=== PATIENT | male | born 1990 | race American Indian/Alaskan Native ===

== ENCOUNTER 2017-03-31 22:17 | Emergency (ER) | payer SELFPAY ==
[2017-04-01 00:22] LABS: Basophils % (Auto) 0.4 % (0.0-1.8); Eosinophils % (Auto) 4.8 % (0.0-4.3); Hemoglobin 13.1 gm/dl (11.8-15.2); Mean Corpuscular HGB Conc 34 % (32-34); Mean Corpuscular Hemoglobin 33 pg (28-32); Mean Corpuscular Volume 97 fl (84-94); Platelet Count 187 K/mm3 (140-440); Red Blood Count 4.04 M/mm3 (3.65-5.03); Red Cell Distribution Width 11.3 % (13.2-15.2); White Blood Count 8.5 K/mm3 (4.5-11.0)
[2017-04-01 00:50] LABS: Alanine Aminotransferase 15 units/L (7-56); Albumin 3.9 g/dL (3.9-5); Albumin/Globulin Ratio 1.1 %; Alkaline Phosphatase 115 units/L (35-129); Anion Gap 19 mmol/L; BUN/Creatinine Ratio 16.25; Blood Urea Nitrogen 13 mg/dL (9-20); Carbon Dioxide 22 mmol/L (22-30); Glucose 104 mg/dL (75-100); Lipase 28 units/L (13-60); Potassium 4.1 mmol/L (3.6-5.0); Sodium 138 mmol/L (137-145); Total Protein 7.5 g/dL (6.3-8.2)
[2017-04-01 01:26] LABS: Bacteria,Urine 1+ /HPF (Negative); Bilirubin,Urine NEG (Negative); Blood,Urine NEG (Negative); Ketones,Urine NEG (Negative); Leukocyte Esterase,Urine NEG (Negative); Mucus,Urine 1+ /HPF; Nitrite,Urine NEG (Negative); Protein,Urine <15 mg/dL mg/dL (Negative); WBC,Urine < 1.0 /HPF (0.0-6.0)
[2017-04-01 01:55] VITALS: BP 148/69
--- NOTE | 2017-04-01 02:23 | Emergency Department Report ---
HPI - General Chief Complaint: Abdominal Pain Time Seen by Provider: 04/01/17 01:50 - HPI HPI: This is a 26-year-old Afro-[place] male who presents to the emergency department, dropped off to be seen, with complaint of lower abdominal pain that has been going on intermittently for the past 3-4 days. Associated with some diarrhea. He denies any vomiting, dysuria, penile discharge, fever, back pain. He has not taken anything for his symptoms prior to presentation. He denies any past medical history. He does not have a primary care physician. No recent travel or sick contacts at home. ED Past Medical Hx - Past Medical History Previous Medical History?: No - Surgical History Past Surgical History?: Yes Additional Surgical History: left leg - Social History Smoking Status: Never Smoker Substance Use Type: Alcohol ED Review of Systems ROS: Stated complaint: LOWER ABD PAIN Other details as noted in HPI Comment: All other systems reviewed and negative Constitutional: denies: chills, fever Eyes: denies: eye pain, eye discharge, vision change ENT: denies: ear pain, throat pain Respiratory: denies: cough, shortness of breath, wheezing Cardiovascular: denies: chest pain, palpitations Gastrointestinal: abdominal pain, diarrhea. denies: vomiting Genitourinary: denies: urgency, dysuria Musculoskeletal: denies: back pain, joint swelling, arthralgia Skin: denies: rash, lesions Neurological: denies: headache, weakness, paresthesias Physical Exam - Physical Exam Vital Signs: Vital Signs 03/31/17 04/01/17 23:26 01:54 Temperature 98.3 F Pulse Rate 64 64 Respiratory 16 16 Rate Blood Pressure 119/79 Blood Pressure 148/69 [Right] O2 Sat by Pulse 98 98 Oximetry Physical Exam: GENERAL: The patient is well-developed well-nourished. HEENT: Normocephalic. Atraumatic. Extraocular motions are intact. Patient has moist mucous membranes. Pupils equal reactive to light bilaterally. NECK: Supple. Trachea is midline. CHEST/LUNGS: Clear to auscultation. There is no respiratory distress noted. HEART/CARDIOVASCULAR: Regular. There is no tachycardia. There is no gallop rub or murmur. ABDOMEN: Abdomen is soft. Mild generalized tenderness to palpation of the abdomen. No guarding rebound tenderness. Patient has normal bowel sounds. There is no abdominal distention. SKIN: Skin is warm and dry. NEURO: The patient is awake, alert, and oriented. The patient is cooperative. The patient has no focal neurologic deficits. The patient has normal speech. MUSCULOSKELETAL: There is no tenderness or deformity. There is no limitation range of motion. There is no evidence of acute injury. ED Course Vital Signs 03/31/17 04/01/17 23:26 01:54 Temperature 98.3 F Pulse Rate 64 64 Respiratory 16 16 Rate Blood Pressure 119/79 Blood Pressure 148/69 [Right] O2 Sat by Pulse 98 98 Oximetry ED Medical Decision Making - Lab Data Result diagrams: 03/31/17 23:47 03/31/17 23:47 - Radiology Data Radiology results: image reviewed interpreted by me: Abdominal x-ray shows nonspecific nonobstructive bowel gas. - Medical Decision Making 26-year-old male presents to the emergency department with complaint of some intermittent abdominal pains over the past few days as well as some diarrhea. Vital signs stable throughout his ED course. Labs are unremarkable did not show any etiology of the patient's symptoms. No leukocytosis. No electrolyte abnormalities. Normal belly labs including bilirubin, lipase and LFTs. Urinalysis does not show any urinary tract infection. Abdominal x-ray does not show any signs of obstruction or any acute process. The patient has been resting comfortably and/or sleeping on the gurney throughout most of his ED course. For these reasons patient appears safe for discharge home with this time. He'll be given referrals for primary care and encouraged to return to the ER with any worsening of symptoms or any acute distress. - Differential Diagnosis gastroenteritis, food poisoning, colitis, diverticulitis Critical Care Time: No Critical care attestation.: If time is entered above; I have spent that time in minutes in the direct care of this critically ill patient, excluding procedure time. ED Disposition Clinical Impression: Abdominal pain Qualifiers: Abdominal location: generalized Qualified Code(s): R10.84 - Generalized abdominal pain Disposition: TO HOME OR SELFCARE Is pt being admited?: No Condition: Stable Instructions: Abdominal Pain (ED) Additional Instructions: Please follow-up with a primary care physician in the next few days. Return to the emergency department with any worsening of your symptoms or any acute distress. Referrals: PRIMARY MD KLEVER [Primary Care Provider] - 3-5 Days [facility] [Outside] - 3-5 Days [facility] [Outside] - 3-5 Days [facility] [Outside] - 3-5 Days Forms: Work/School Release Form(ED) Time of Disposition: 05:24
[2017-04-01] MEDS ORDERED: NORCO 5/325 PO ONE (03:00)
--- NOTE | 2017-04-01 07:35 | XRay Report ---
ABDOMEN, 2 views: History: Abdominal pain. There is no evidence of free air beneath the diaphragms. The gas pattern within the abdomen is unremarkable. There is no evidence of bowel dilatation, significant air-fluid levels, or pathologic calcifications. Organ shadows are unremarkable. IMPRESSION: Unremarkable abdomen.
== END 2017-04-01 06:10 | disposition home or self-care (01) ==
LOC: ED 22:17
DX: R10.84 Generalized abdominal pain (principal)
CPT/HCPCS: 36415; 74020; 80053; 81001; 83690; 85025